=== PATIENT | male | born 1945 | race Caucasian/White ===

== ENCOUNTER 2017-02-18 20:43 | Emergency (ER) | payer MEDICARE, BC ==
[2017-02-18 20:52] VITALS: BP 131/79
--- NOTE | 2017-02-18 21:14 | ERNOTE ---
Upper Extremity HPI - General Extremities Pain Location: shoulder: left Time Seen by Provider: 02/18/17 20:57 Source: patient Exam Limitations: no limitations - Immun/Allergies/Home Medications Immunizations: IMMUNIZATION HX Immunizations Up to Date No History of Influenza Vaccine No Hx Pneumococcal Vaccination No Allergies/Adverse Reactions: Allergies Allergy/AdvReac Type Severity Reaction Status Date / Time acetaminophen [From Vicodin] AdvReac Intermediate VIOLENT Verified 03/23/14 12: 32 VOMITING Home Medications: HOME MEDICATIONS Ascorbic Acid [Vitamin C] 500 mg PO DAILY 03/23/14 [Last Taken Unknown] Atorvastatin Calcium [Lipitor] 20 mg PO DAILY 03/23/14 [Last Taken Unknown] Enalapril/Hydrochlorothiazide [Vaseretic 10-25 mg Tablet] 1 each PO DAILY [Last Taken Unknown] Esomeprazole Magnesium [Nexium] 20 mg PO Q48H 03/23/14 [Last Taken Unknown] Multivitamins [Multivitamin Mckayla] 1 cap PO DAILY 03/23/14 [Last Taken Unknown] - History of Present Illness Narrative: Pt states that he has had off and on pain in his lateral left shoulder for the past 2 days. Earlier today it resolved and then he lay down to take an nap and it was worse after his nap. He admits to sleeping on his left side. Occurred: yesterday Location of Incident: home Severity: mild Method of Injury: Reports: no apparent injury Modifying Factors - (Worsens): Reports: movement Other Injuries: Reports: none Review of Systems - Review of Systems Constitutional: Absent: recent illness Respiratory: Absent: shortness of breath Cardiology: Absent: chest pain Gastrointestinal/Abdominal: Absent: nausea Genitourinary: Present: no symptoms reported Musculoskeletal: Present: See HPI, muscle pain. Absent: joint swelling Skin: Absent: rash Neurological: Present: no symptoms reported Endocrine: Present: no symptoms reported Hematologic/Lymphatic: Present: no symptoms reported - Patient's Past Medical History Patient History - Medical: No pertinent hx Patient History - Cardiac/Respiratory: CVA/Stroke, Hypertension, Hyperlipidemia Patient History - Cancer: Bladder Patient History - Surgical Procedures: Cancer Surgery, T & A, Orthopedic Patient History - Other: None - Social History Living Situations: home Abuse History: No History of abuse Psych History: No pertinent hx Smoking Status: Current every day smoker Alcohol Use: none Drug Use: none - Immunizations Immunizations Up to Date: No Hx Pneumococcal Vaccination: No History of Influenza Vaccine: No Physical Exam - Physical Exam General Appearance: Present: wd/wn, alert, no apparent distress Head Exam: Present: normal inspection, no evidence of injury Neck: Present: normal inspection, nontender, full range of motion Respiratory: Present: no respiratory distress, no accessory muscle use Back Exam: Present: normal inspection, normal range of motion, no vertebral tenderness Extremity Exam: Present: normal except - - tenderness left lateral /slightly posterior shoulder. Supraspinatus test mildly positive on the left Neurological Exam: Present: alert, oriented, normal mood/affect, no motor/ sensory deficits Skin Exam: Present: normal color, warm/dry Lymphatic Exam: Present: no adenopathy ED Progress - Vital Signs Vital Signs: Vital Signs 02/18/17 20:47 Temperature 36.5 C Pulse Rate 84 Respiratory 18 Rate Blood Pressure 131/79 O2 Sat by Pulse 97 Oximetry - Progress/Reassessment Chief Complaint: Shoulder Injury/Pain Progress Note-Subjective: 02/18/17 21:12 Pt resistant to taking ibuprofen or naproxen but states he takes aspirin on occasion for pain. I suggested he could take aspirin 1-2 times a day as needed. Departure Clinical Impression: Tendonitis of shoulder, left - Departure Disposition: Home self-care Condition: Good Instructions: Rotator Cuff Tendinitis Additional Instructions: you may take aspirin 1-2 times a day as needed for pain Referrals: Musa Antonio MD [Primary Care Provider] -
== END 2017-02-18 21:10 | disposition home or self-care (01) ==
LOC: ER 20:43
DX: M75.82 Other shoulder lesions, left shoulder (principal); Z85.51 Personal history of malignant neoplasm of bladder; F17.200 Nicotine dependence, unspecified, uncomplicated

== ENCOUNTER 2020-04-06 09:11 | Observation (INO) ==
[2020-04-06 09:57] LABS: Hemoglobin 13.7 gm/dL (13.5-18.0); Mean Cell Volume 91.8 fl (78-100); Mean Corpuscular Hemoglobin 32.2 pg (27-31); Mean Corpuscular Hgb Conc 35.1 g/dl (32-36); Mean Platelet Volume 7.9 fl (8-11.3); Neutrophil # 6.3 K/mm3 (1.3-6.0); Platelet Count 399 K/mm3 (150-450); Red Blood Count 4.25 M/mm3 (4.7-6.0); Red Cell Distribution Width 12.3 % (11.5-14.0); White Blood Count 8.7 K/mm3 (4.0-10.5)
[2020-04-06 10:13] LABS: Anion Gap 14.2 mmol/L (6.8-13.8); BUN/Creatinine Ratio 21.9 (9.0-21.6); Bilirubin, Total 0.4 mg/dL (0.0-1.1); Ca. Corrected For Albumin 9.6 mg/dL (8.4-10.2); Calcium * 9.1 mg/dL (7.9-10.9); Carbon Dioxide 23.5 mmol/L (24-32.6); Potassium 2.7 mmol/L (3.4-4.6); Total Protein 7.2 gm/dL (6.2-8.2)
[2020-04-06] MEDS: POTASSIUM CHLORIDE 20 MEQ in NORMAL SALINE 1,000 ML IV SCH ×2 (12:33→19:59)
[2020-04-06] MEDS: POTASSIUM CHLORIDE IN WATER 100 ML IV SCH ×2 (12:37→14:25)
--- NOTE | 2020-04-06 12:58 | PN ---
[facility] Note - Interim Date: 04/06/20 Time: 12:52 Narrative: 04/06/20 12:52 Patient was seen in the medsur floor on 04/06/2020. His EKG showed NSR with nonspecific ST & T wave abnormality. Will continue with current medications and present management. My clinic visit notes will serve as my H & P for this admission.
[2020-04-06] MEDS ORDERED: FLU VACC QS2020-21(6MOS UP)/PF 60 MCG/0.5 ML SYRINGE IM ONE (13:00)
[2020-04-06 16:26] LABS: Urine Bilirubin Negative (NEGATIVE); Urine Ketone Negative (NEGATIVE); Urine Protein Negative (NEGATIVE); Urine Urobilinogen Normal (NORMAL); Urine pH 5.5 pH (5.0-7.0)
[2020-04-06 17:21] LABS: Urine Appearance Slightly Cloudy (CLEAR); Urine Blood 5 /ul (NEGATIVE); Urine Color Yellow; Urine Nitrite Positive (NEGATIVE); Urine WBC 25-50 /hpf (0-5)
[2020-04-06 17:22] LABS: Urine Bacteria 4+; Urine RBC TRACE /hpf (0-5)
[2020-04-06 17:27] LABS: Urine Yeast TRACE
[2020-04-06] MEDS: POTASSIUM CHLORIDE 10 MEQ TABLET.SA PO SCH (17:46)
[2020-04-07] MEDS: POTASSIUM CHLORIDE 20 MEQ in NORMAL SALINE 1,000 ML IV SCH ×2 (02:23→09:40)
[2020-04-07 06:35] LABS: Hematocrit 36.3 % (42.0-52.0); Hemoglobin 12.7 gm/dL (13.5-18.0); Mean Cell Volume 94.3 fl (78-100); Neutrophil # 5.7 K/mm3 (1.3-6.0); Neutrophil % 71.9 % (42-75.0); Platelet Count 335 K/mm3 (150-450); Red Blood Count 3.85 M/mm3 (4.7-6.0); Red Cell Distribution Width 12.5 % (11.5-14.0); White Blood Count 7.9 K/mm3 (4.0-10.5)
[2020-04-07 06:47] LABS: Anion Gap 11.4 mmol/L (6.8-13.8); BUN/Creatinine Ratio 19.8 (9.0-21.6); Calcium * 8.7 mg/dL (7.9-10.9); Carbon Dioxide 23.5 mmol/L (24-32.6); Estimated Creat Clear 39.3; Potassium 3.9 mmol/L (3.4-4.6)
[2020-04-07] MEDS ORDERED: SILDENAFIL CITRATE 50 MG PO PRN (08:18)
[2020-04-07] MEDS ORDERED: PANTOPRAZOLE SODIUM 20 MG TABLET.DR PO PRN (08:18)
--- NOTE | 2020-04-07 08:52 | DS ---
(1) UTI (urinary tract infection) Problem: Acute Qualifiers: Urinary tract infection type: site unspecified Hematuria presence: without hematuria Qualified Code(s): N39.0 - Urinary tract infection, site not specified (2) Acute renal failure Problem: Acute Qualifiers: Acute renal failure type: unspecified Qualified Code(s): N17.9 - Acute kidney failure, unspecified (3) Hypokalemia Problem: Resolved (4) Hyponatremia Problem: Resolved (5) Low blood pressure Problem: Resolved Qualifiers: Hypotension type: other hypotension type Qualified Code(s): I95.89 - Other hypotension (6) Bladder cancer Problem: Chronic Qualifiers: Bladder location: unspecified site Qualified Code(s): C67.9 - Malignant neoplasm of bladder, unspecified (7) CRF (chronic renal failure) Problem: Chronic Qualifiers: Chronic kidney disease stage: stage 3 (moderate) (8) Erectile dysfunction Problem: Chronic Qualifiers: Erectile dysfunction type: unspecified Qualified Code(s): N52.9 - Male erectile dysfunction, unspecified (9) Hyperlipidemia Problem: Chronic Qualifiers: Hyperlipidemia type: mixed hyperlipidemia Qualified Code(s): E78.2 - Mixed hyperlipidemia (10) Hypertension Problem: Chronic Qualifiers: Hypertension type: essential hypertension Qualified Code(s): I10 - Essential (primary) hypertension Hospital Course: Bryn Coyne is a 74-year-old white male who presented to the office on 05/08/2020 for a sick visit. The patient had been having diarrhea since Thursday of last week described as watery, big volume, not associated with fever or chills or abdominal pain, occurring about 10-12 times a day. Since two and a half days ago he said that his diarrhea has gotten down to about 2 times a day. He has been taking Imodium on a as needed basis. His stool for occult blood was negative and there was no pathogen isolated. We did order for C. difficile and I cannot find the result. Blood work done today in the office showed a white blood cell count of 8.7, hemoglobin of 13.7, platelets of 399, sodium of 127, potassium of 2.7, chloride of 92, anion gap of 14.2, creatinine of 2.33 with a BUN of 51 and a GFR of 29, random blood sugar 108, liver function test within normal limits except for slightly low albumin. He denied any nausea or vomiting and denies any history of recent antibiotic intake. He was then admitted for electrilyte imbalance, low blood pressure, dehydration, acute kidney injury on acute renal failure. He was started on IVF, NSS with KCl plus additinal PO and IV KCL replacements. His BP medication was put on hold. Today he feels a lot better witj K, Na back to normal and his kidney function improved. We will discharge him today.He will hold his BP for 1 more day and he was encouraged to increase oral fluids. Follow up with me in 1 week. His UA showed UTI with Gram negative bacilli. will start him on Cipro. Procedures Performed: none Results and Findings: Pending Mircobiology Results 04/06/20 15:53 Urine,Clean Catch Urine Culture - Preliminary Gram Negative Bacilli Lab Pending Results 04/06/20 09:47: WBC 8.7, RBC 4.25 L, Hgb 13.7, Hct 39.0 L, MCV 91.8, MCH 32.2 H, MCHC 35.1, RDW 12.3, Plt Count 399, MPV 7.9 L, Immature Gran % (Auto) 1.40 H, Immature Gran # (Auto) 0.12 H, Neutrophils % 72.0, Lymphocytes % 14.3 L, Monocytes % 9.3 H, Eosinophils % 2.2, Basophils % 0.8, Nucleated RBC % 0.0, Neutrophils # 6.3 H, Lymphocytes # 1.25 L, Monocytes # 0.8, Eosinophils # 0.2, Absolute Basophils 0.1 04/06/20 09:47: Sodium 127 L, Plasma Sodium 127 L, Potassium 2.7 L D, Chloride 9 2 L, Carbon Dioxide 23.5 L, Anion Gap 14.2 H, BUN 51 H D, Creatinine 2.33 H D, Est GFR (Non-Af Amer) 29 L D, BUN/Creatinine Ratio 21.9 H, Random Glucose 108, Calcium 9.1, Calcium Adj for Albumin 9.6, Total Bilirubin 0.4, AST 22, ALT 37, Alkaline Phosphatase 52, Total Protein 7.2, Albumin 3.0 L 04/06/20 15:53: Urine Color Yellow, Urine Appearance Slightly cloudy, Urine pH 5 .5, Ur Specific [place] 1.010, Urine Protein Negative, Urine Glucose (UA) Negative, Urine Ketones Negative, Urine Blood 5 H, Urine Nitrate Positive H, Urine Bilirubin Negative, Urine Urobilinogen Normal, Ur Leukocyte Esterase 500 H, Urine RBC Trace, Urine WBC 25-50 H, Ur Epithelial Cells Trace, Urine Bacteria 4+ H, Urine Yeast Trace, Urine Comment Culture ordered L 04/06/20 18:18: Stl C.difficile Tox A&B Negative 04/07/20 06:30: WBC 7.9, RBC 3.85 L, Hgb 12.7 L, Hct 36.3 L, MCV 94.3, MCH 33.0 H, MCHC 35.0, RDW 12.5, Plt Count 335, MPV 8.0, Immature Gran % (Auto) 1.50 H, Immature Gran # (Auto) 0.12 H, Neutrophils % 71.9, Lymphocytes % 14.4 L, Monocytes % 9.0, Eosinophils % 2.4, Basophils % 0.8, Nucleated RBC % 0.0, Neutrophils # 5.7, Lymphocytes # 1.14 L, Monocytes # 0.7, Eosinophils # 0.2, Absolute Basophils 0.1 04/07/20 06:30: Sodium 133, Plasma Sodium 133, Potassium 3.9 D, Chloride 102, Carbon Dioxide 23.5 L, Anion Gap 11.4, BUN 32 H, Creatinine 1.62 H D, Est GFR (Non-Af Amer) 45 L D, BUN/Creatinine Ratio 19.8, Random Glucose 94, Calcium 8.7, Amylase 63, Lipase 141 Discharge Location: Home Disposition: Home self-care Condition: Stable Discharge Activity: Activity as tolerated Discharge Diet: Low salt Referrals: Musa Antonio MD [Primary Care Provider] - Additional Patient Instructions (free text): Follow up with PCP in 1 week. Prescriptions (Any new or edited meds): Ciprofloxacin HCl [Cipro] 500 mg PO BID #14 tab Transmission Status: Pending to [facility] Complete Home Medications List: Complete Home Medication List: Ascorbic Acid [Vitamin C] 500 mg PO DAILY 03/23/14 multivitamin 1 cap PO DAILY 01/15/18 sildenafil 50 mg tablet 50 mg PO DAILY PRN 01/15/18 esomeprazole magnesium 20 mg capsule,delayed release 20 mg PO DAILY PRN 07/08/19 atorvastatin 20 mg tablet 20 mg PO DAILY #90 tab 12/08/19 enalapril 10 mg-hydrochlorothiazide 25 mg tablet 1 tab PO DAILY #90 tab 12/08/19 Ciprofloxacin HCl [Cipro] 500 mg PO BID #14 tab 04/07/20 Forms: Patient Portal Registration
[2020-04-07] MEDS: POTASSIUM CHLORIDE 10 MEQ TABLET.SA PO SCH (08:57)
[2020-04-07] MEDS ORDERED: MULTIVITAMINS 1 CAP CAPSULE PO SCH (09:00)
[2020-04-07] MEDS ORDERED: ROSUVASTATIN CALCIUM 10 MG TABLET PO SCH (09:00)
[2020-04-07] MEDS ORDERED: ASCORBIC ACID 500 MG TABLET PO SCH (09:00)
[2020-04-07] MEDS ORDERED: FLU VACC QS2020-21(6MOS UP)/PF 60 MCG/0.5 ML SYRINGE IM ONE (09:30)
[2020-04-07 09:55] VITALS: BP 133/77
== END 2020-04-07 09:50 | disposition home or self-care (01) ==
LOC: CCFAL → MS 09:11 → LAB 09:11
PROVIDERS: ADMIT Internal Medicine; ATTEND Internal Medicine